=== PATIENT | male | born 1960 | race Caucasian/White ===

== ENCOUNTER → 2017-03-01 | Outpatient (CLI) | payer OTHER ==
[~2017-03-01] MED LIST: ATOR10TA82 PO; COEN50CA22 PO; FEXO1TAB49 PO; NIAC1TAB56 PO
== END | disposition home or self-care (01) ==
LOC: C.PATHSPEC 14:58
PROVIDERS: ATTEND Urology
DX: R97.20 Elevated prostate specific antigen [PSA] (principal); C61 Malignant neoplasm of prostate

== ENCOUNTER → 2017-06-12 | Outpatient (CLI) | payer OTHER ==
[~2017-06-12] MED LIST changes: -ATOR10TA82 PO; +ATOR10TA88 PO
[2017-06-12 09:45] LABS: BLOOD UREA NITROGEN 15 mg/dl (7-18); CREATININE 0.95 mg/dl (0.60-1.40)
== END | disposition home or self-care (01) ==
LOC: C.LAB1850 07:21
PROVIDERS: ATTEND Urology
DX: R97.20 Elevated prostate specific antigen [PSA] (principal)

== ENCOUNTER → 2017-06-19 | Outpatient (CLI) | payer OTHER ==
[~2017-06-19] MED LIST changes: +GADAVIST IV PRN
--- NOTE | 2017-06-19 15:39 | DIAGNOSTIC IMAGING REPORT ---
PROSTATE MRI COMBO CLINICAL HISTORY: 57 years-old Male presenting with MALIGNANT NEOPLASM OF PROSTATE diagnosed March 05, 2017, low [place] score, no treatment. PSA 7.08 ng/mL. TECHNIQUE: Multisequence, multiplanar MR imaging of the prostate was performed before and after the administration of intravenous contrast. Additional postprocessing was performed on a separate [employer] workstation by the radiologist for 3-D volumetric segmentation of the prostate and contouring of region(s) of interest (ABHI) for targeting. IV contrast: 7.5 mL of Gadavist. COMPARISON: None. FINDINGS: Prostate: The prostate measures 3.2 x 4.5 x 3.8 cm (DynaCAD prostate boundary segmentation volume 40 mL). Mild changes of benign prostatic hyperplasia. Precontrast T1 weighted imaging demonstrates no evidence of intrinsic T1 hyperintensity to suggest hemorrhage. The peripheral zone is heterogeneous on T2-weighted imaging with multifocal areas of bandlike and wedgelike hypointensity, limiting diagnostic sensitivity and likely representing chronic atrophy and/or prostatitis. Seminal vesicles normal. No suspicious lesion is apparent in the transition or peripheral zones. Bladder: Bladder wall thickening likely indicating chronic outlet obstruction. Bowel: Visualized portion of the rectum normal. Peritoneum: No free fluid in the pelvis. Lymph nodes: No lymphadenopathy in the visualized portion of the pelvis. Vasculature: Iliac vessels patent. Osseous structures: Normal bone marrow signal intensity. IMPRESSION: 1. No convincing evidence of a suspicious lesion for targeted biopsy allowing for the presence of multifocal areas of chronic atrophy and/or prostatitis. 2. Benign prostatic hyperplasia. 3. Bladder wall thickening likely indicates chronic outlet obstruction. Electronically signed by: Brian Molina M.D. 06/19/2017 3:38 PM Dictated Date/Time: 06/19/2017 1:43 PM
== END | disposition home or self-care (01) ==
LOC: C.MRIBC 10:08
PROVIDERS: ATTEND Urology
DX: C61 Malignant neoplasm of prostate (principal)

== ENCOUNTER → 2017-10-04 | Outpatient (CLI) | payer OTHER ==
[~2017-10-04] MED LIST changes: +ATOR10TA82 PO; -ATOR10TA88 PO; -GADAVIST IV PRN
== END | disposition home or self-care (01) ==
LOC: C.LAB1850 14:39
PROVIDERS: ATTEND Urology
DX: C61 Malignant neoplasm of prostate (principal)